=== PATIENT | female | born 1980 | race Caucasian/White ===

== ENCOUNTER → 2023-12-19 13:20 | Outpatient (REF) | payer OTHER, SELFPAY | LOC: HWRAD 13:20 | PROVIDERS: ATTENDING PHYSICIAN Physician Assistant Medical | DX: E04.1 Nontoxic single thyroid nodule (principal); Z12.31 Encounter for screening mammogram for malignant neoplasm of breast | CPT/HCPCS: 76536 ==

== ENCOUNTER → 2024-01-01 07:29 | Outpatient (REF) | payer OTHER, SELFPAY ==
[2024-01-01 07:50] VITALS: BP 109/70; BP_SYST 85
== END ==
LOC: RADI 07:29
PROVIDERS: ATTENDING PHYSICIAN Physician Assistant Medical
DX: E04.1 Nontoxic single thyroid nodule (principal)
CPT/HCPCS: 88173; 10005